=== PATIENT | female | born 1950 | race Caucasian/White ===

== ENCOUNTER → 2017-10-17 | Outpatient (CLI) | payer OTHER, MEDICARE ==
[~2017-10-17] MED LIST: CYCL5TAB PO
== END | disposition home or self-care (01) ==
LOC: STAR 14:49
PROVIDERS: ATTEND Thoracic Surgery (Cardiothoracic Vascular Surgery)
DX: Z01.818 Encounter for other preprocedural examination (principal)
CPT/HCPCS: 93005

== ENCOUNTER 2017-10-29 09:42 | Inpatient (IN) | payer OTHER, MEDICARE ==
[2017-10-17 15:21] VITALS: BP 114/78
[~2017-10-29] VITALS: Ht 157.5 cm; Wt 40.3 kg
[~2017-10-29 09:42] MED LIST changes: +BUPIVACAINE/PF 0.5% ONE
[2017-10-29] MEDS ORDERED: MIDAZOLAM 1 MG/ML, 2ML ONE (10:23)
[2017-10-29] MEDS ORDERED: FENTANYL PF 250 MCG/5ML ONE (10:23)
[2017-10-29] MEDS ORDERED: LACTATED RINGERS 1,000 ML IV SCH (10:34)
[2017-10-29] MEDS ORDERED: SCOPOLAMINE 1MG PATCH TD ONE (11:50)
[2017-10-29] MEDS ORDERED: DEXAMETHASONE 4 MG/ML, 1ML ONE (12:04)
[2017-10-29] MEDS ORDERED: ONDANSETRON 2MG/ML, 2ML ONE ×2 (12:04→14:13)
[2017-10-29] MEDS ORDERED: SUCCINYLCHOLINE 20 MG/ML, 10ML ONE (12:04)
[2017-10-29] MEDS ORDERED: ROCURONIUM 10 MG/ML,10ML ONE (12:04)
[2017-10-29] MEDS ORDERED: LABETALOL 5MG/ML, 20ML ONE (12:04)
[2017-10-29] MEDS ORDERED: CEFAZOLIN 1,000 MG ONE (12:04)
[2017-10-29] MEDS ORDERED: PROPOFOL 10 MG/ML, 20ML ONE (12:04)
[2017-10-29] MEDS ORDERED: ACETAMINOPHEN 325 MG TABLET PO PRN (12:30)
[2017-10-29] MEDS ORDERED: HYDROmorphone 1 MG/ML, 1ML IV PRN (12:30)
[2017-10-29] MEDS ORDERED: PROMETHAZINE 25 MG/ML, 1ML IV PRN (12:30)
[2017-10-29] MEDS ORDERED: MEPERIDINE/PF 25MG/0.5ML IVPush PRN (12:30)
[2017-10-29] MEDS ORDERED: hydrALAzine 20 MG/ML, 1ML IV PRN (14:00)
[2017-10-29] MEDS ORDERED: PROMETHAZINE 12.5 MG SUPP PR PRN (14:00)
[2017-10-29] MEDS: FAMOTIDINE 20 MG/2 ML IV SCH ×2 (14:00→18:25)
[2017-10-29] MEDS ORDERED: HYDROcodone/APAP 7.5-325MG/15ML UDC PO PRN (14:00)
[2017-10-29] MEDS ORDERED: ENALAPRILAT 1.25 MG/ML, 2ML IV PRN (14:00)
[2017-10-29] MEDS ORDERED: DIPHENHYDRAMINE 50 MG/ML, 1ML IV PRN (14:00)
[2017-10-29] MEDS ORDERED: LORazepam 2 MG/ML, 1ML IV PRN (14:00)
[2017-10-29] MEDS: FENTANYL PF 100 MCG/2ML IV PRN ×3 (14:06→14:30)
[2017-10-29] MEDS ORDERED: ACETAMINOPHEN 650 MG/20.3 ML UDC ONE (14:07)
[2017-10-29] MEDS ORDERED: OXYcodone 5 MG/5 ML ORAL.SOL UDC ONE (14:07)
[2017-10-29] MEDS ORDERED: FENTANYL PF 100 MCG/2ML ONE (14:07)
[2017-10-29] MEDS: ONDANSETRON 2MG/ML, 2ML IVPush PRN ×3 (14:15→23:29)
[2017-10-29] MEDS ORDERED: HYDROmorphone 2 MG/ML, 1ML ONE (14:31)
[2017-10-29] MEDS: LACTATED RINGERS 1,000 ML IV SCH (17:11)
[2017-10-29] MEDS: morphine SULFATE 10 MG/ML, 1ML IV PRN ×2 (19:45→23:40)
[2017-10-29 20:19] VITALS: BP 123/79
[2017-10-29] MEDS: PROMETHAZINE 25 MG/ML, 1ML IM PRN (23:40)
[2017-10-30 00:16] VITALS: BP 130/84
[2017-10-30] MEDS: LACTATED RINGERS 1,000 ML IV SCH ×2 (03:01→17:34)
[2017-10-30 04:56] VITALS: BP_SYST 109; BP_SYST 132; BP_DIAS 74; BP_DIAS 75
[2017-10-30 07:25] VITALS: BP 128/68
[2017-10-30] MEDS: ENOXAPARIN 40 MG/0.4 ML SQ SCH ×3 (09:00→12:55)
[2017-10-30] MEDS: ONDANSETRON 2MG/ML, 2ML IVPush PRN (09:07)
[2017-10-30] MEDS: morphine SULFATE 10 MG/ML, 1ML IV PRN (09:07)
[2017-10-30] MEDS: PROMETHAZINE 25 MG/ML, 1ML IM PRN ×2 (09:42→20:05)
[2017-10-30 10:32] VITALS: BP 134/77
[2017-10-30 12:40] VITALS: BP 131/74
[2017-10-30] MEDS: FAMOTIDINE 20 MG/2 ML IV SCH (16:15)
[2017-10-30 20:00] VITALS: BP 134/67
[2017-10-31] MEDS: ONDANSETRON 2MG/ML, 2ML IVPush PRN (00:31)
[2017-10-31 02:00] VITALS: BP 136/72
[2017-10-31] MEDS: FAMOTIDINE 20 MG/2 ML IV SCH (03:20)
[2017-10-31] MEDS: LACTATED RINGERS 1,000 ML IV SCH (03:22)
[2017-10-31 08:40] VITALS: BP 115/68
[2017-10-31] MEDS ORDERED: HYDR473S51 PO (08:45)
[2017-10-31] MEDS: ENOXAPARIN 40 MG/0.4 ML SQ SCH (13:00)
[2017-10-31 13:40] VITALS: BP 109/76
== END 2017-10-31 14:19 | disposition home or self-care (01) | DRG 419 ==
LOC: OUT 09:42 → ORIP 13:58 → 4NOR 16:07 → DCLOUNGE 10-31 14:02
PROVIDERS: ADMIT Thoracic Surgery (Cardiothoracic Vascular Surgery); ATTEND Thoracic Surgery (Cardiothoracic Vascular Surgery)
PROC: 0FT44ZZ Resection of Gallbladder, Percutaneous Endoscopic Approach (ICD-10-PCS; 2017-10-29)
PROC: 0BQT4ZZ Repair Diaphragm, Percutaneous Endoscopic Approach (ICD-10-PCS; 2017-10-29)
PROC: 0DV44ZZ Restriction of Esophagogastric Junction, Percutaneous Endoscopic Approach (ICD-10-PCS; principal; 2017-10-29 12:00)
DX: K80.10 Calculus of gallbladder with chronic cholecystitis without obstruction (principal); K44.9 Diaphragmatic hernia without obstruction or gangrene; K82.8 Other specified diseases of gallbladder; Z88.5 Allergy status to narcotic agent; Z88.2 Allergy status to sulfonamides
CPT/HCPCS: 88304; J0690; J1100; J1170; J1650; J2250; J2405; J2550; J2704; J3010; J3490; J0330; J2270; J7120; S0028